=== PATIENT | female | born 1990 | race African-American/Black ===

== ENCOUNTER 2019-10-19 09:48 | Emergency (ER) | payer SELFPAY ==
[2019-10-19 12:09] LABS: Urine Blood NEGATIVE (NEG); Urine Glucose NEGATIVE (NEG); Urine Protein NEGATIVE (NEG); Urine Specific Gravity 1.025 (1.005-1.030)
[2019-10-19] MEDS ORDERED: NA CHLORIDE 0.9% 1,000 ML ONE (12:18)
[2019-10-19 13:12] LABS: Absolute Lymphocytes (CBC) 2.1 K/uL (0.7-4.9); Basophils % 1.9 % (0-1.3); Hematocrit 35.4 % (36.0-45.0); Lymphocytes % 23.8 % (15.3-44.8); MPV 7.7 fL (7.6-11.3); RBC Red Blood Cell Count 4.26 M/uL (3.86-4.86)
[2019-10-19 13:27] LABS: ALT/SGPT 31 U/L (12-78); AST/SGOT 27 U/L (15-37); Albumin 3.3 g/dL (3.4-5.0); Alkaline Phosphatase 72 U/L (45-117); BUN Blood Urea Nitrogen 8 mg/dL (7-18); Bicarbonate 25 mmol/L (21-32); Bilirubin Direct < 0.1 mg/dL (0-0.2); Bilirubin Total 0.2 mg/dL (0.2-1.0); Glucose Level 82 mg/dL (74-106); Lipase 78 U/L (73-393); Potassium 4.3 mmol/L (3.5-5.1); Protein, Total 8.3 g/dL (6.4-8.2); Sodium Level 137 mmol/L (136-145)
[2019-10-19] MEDS ORDERED: ONDANSETRON 4 MG/2 ML VIAL ONE (13:44)
--- NOTE | 2019-10-19 13:51 | ER ---
Nurse's Notes [facility] Name: Josr Tan Age: 28 yrs Sex: Female : 1990 Arrival Date: 10/19/2019 Time: 09:51 Bed 24 Private MD: Diagnosis: Nausea and vomiting Presentation: 10/18 10:56 Chief complaint: Patient states: Vomiting and dizziness x 1.5 week. Today, has been the ca1 worse day. Reports occasional sharp abdominal pain. Denies diarrhea. Coronavirus screen: The patient has NOT traveled to a country currently being monitored by the [facility] within the last 14 days. The patient has NOT had contact with any known and/or suspected case of coronavirus. Ebola Screen: Patient negative for fever greater than or equal to 101.5 degrees Fahrenheit, and additional compatible Ebola Virus Disease symptoms Patient denies exposure to infectious person. Patient denies travel to an Ebola-affected area in the 21 days before illness onset. No symptoms or risks identified at this time. Initial Sepsis Screen: Does the patient meet any 2 criteria? No. Patient's initial sepsis screen is negative. Does the patient have a suspected source of infection? No. Patient's initial sepsis screen is negative. Risk Assessment: Do you want to hurt yourself or someone else? Patient reports no desire to harm self or others. Onset of symptoms. 10:56 Method Of Arrival: Ambulatory ca1 10:56 Acuity: TRAVIS 3 ca1 Triage Assessment: 11:45 General: Appears in no apparent distress. comfortable, Behavior is calm, cooperative, vc appropriate for age. Pain: Denies pain. GI: Reports nausea, vomiting. 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 - Social history:: Smoking status: Patient reports the use of cigarette tobacco products, smokes one-half pack cigarettes per day. Screenin:45 Abuse screen: Denies threats or abuse. Nutritional screening: No deficits noted. vc Tuberculosis screening: No symptoms or risk factors identified. Fall Risk None identified. Assessment: 11:45 GI: Abdomen is round. vc 12:00 General: Appears in no apparent distress. comfortable, Behavior is calm, cooperative, vc appropriate for age. Pain: Denies pain. Neuro: Level of Consciousness is awake, alert, obeys commands, Oriented to person, place, time, situation, Appropriate for age. Cardiovascular: Capillary refill < 3 seconds Patient's skin is warm and dry. Respiratory: Airway is patent Respiratory effort is even, unlabored, Respiratory pattern is regular, symmetrical. : No signs and/or symptoms were reported regarding the genitourinary system. 13:00 Reassessment: Patient and/or family updated on plan of care and expected duration. Pain vc level reassessed. Patient is alert, oriented x 3, equal unlabored respirations, skin warm/dry/pink. 14:00 Reassessment: Patient and/or family updated on plan of care and expected duration. Pain vc level reassessed. Patient is alert, oriented x 3, equal unlabored respirations, skin warm/dry/pink. Patient denies pain at this time. Patient states symptoms have improved. Vital Signs: 10:56 BP 133 / 68; Pulse 85; Resp 15 S; Temp 97.8(TE); Pulse Ox 100% on R/A; Weight 95.25 kg ca1 (R); Height 5 ft. 7 in. (170.18 cm) (R); Pain 6/10; 11:46 BP 128 / 84 Supine; Pulse 78; vc 11:48 BP 133 / 85 Sitting; Pulse 78; vc 11:50 BP 129 / 92; Pulse 91; vc 12:40 BP 132 / 89; Pulse 65; Resp 16; Pulse Ox 99% on R/A; vc 14:06 BP 129 / 97; Pulse 67; Resp 16; Pulse Ox 100% ; vc 10:56 Body Mass Index 32.89 (95.25 kg, 170.18 cm) ca1 ED Course: 09:51 Patient arrived in ED. rg4 10:57 Triage completed. ca1 10:58 Arm band placed on right wrist. ca1 11:00 [facility]. kb 11:00 Willy Samanigeo MD is Attending Physician. kb 11:44 Renu Connor RN is Primary Nurse. vc 11:45 Patient has correct armband on for positive identification. Bed in low position. Call vc light in reach. Pulse ox on. NIBP on. 12:25 Inserted saline lock: 22 gauge in left antecubital area, using aseptic technique. vc 14:06 No provider procedures requiring assistance completed. vc 14:16 IV discontinued, intact, bleeding controlled, No redness/swelling at site. Pressure vc dressing applied. Administered Medications: 12:28 Drug: NS 0.9% 1000 ml Route: IV; Rate: 1000 ml; Site: right antecubital; vc 14:17 Follow up: IV Status: Completed infusion; IV Intake: 600ml vc 13:50 Drug: Zofran (Ondansetron) 4 mg Route: IVP; Site: right antecubital; vc 14:16 Follow up: Response: No adverse reaction; Nausea is decreased vc Intake: 14:17 IV: 600ml; Total: 600ml. vc Outcome: 13:49 Discharge ordered by . kb 14:15 Discharged to home ambulatory, with significant other. vc 14:15 Condition: improved 14:15 Discharge instructions given to patient, Instructed on discharge instructions, follow up and referral plans. medication usage, Demonstrated understanding of instructions, follow-up care, medications, Prescriptions given X 2. 14:17 Patient left the ED. vc Signatures: Emilie Correa FNP-C FNP-Kaia Davalos rg4 Tess Gutierrez RN RN ca1 Renu Connor RN RN vc
--- NOTE | 2019-10-19 13:51 | EDPHYS ---
Physician Documentation [facility] Name: Josr Tan Age: 28 yrs Sex: Female : 1990 Arrival Date: 10/19/2019 Time: 09:51 Bed 24 Private MD: ED Physician Willy Samaniego HPI: 10/18 15:51 This 28 yrs old Black Female presents to ER via Ambulatory with complaints of Vomiting, kb Dizziness. 15:51 The patient presents to the emergency department with nausea, vomiting. The patient has kb not experienced similar symptoms in the past. The patient has not recently seen a physician. 15:51 Onset: The symptoms/episode began/occurred 1 week(s) ago. Possible causes: unknown. The kb symptoms are aggravated by nothing. The symptoms are alleviated by nothing. Associated signs and symptoms: Pertinent positives: nausea, vomiting, Pertinent negatives: abdominal pain, constipation, diarrhea, fever, GI bleeding. Severity of symptoms: At their worst the symptoms were moderate in the emergency department the symptoms are unchanged. 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 - Social history:: Smoking status: Patient reports the use of cigarette tobacco products, smokes one-half pack cigarettes per day. ROS: 15:50 Constitutional: Negative for fever, chills, and weight loss, ENT: Negative for injury, kb pain, and discharge, Neck: Negative for injury, pain, and swelling, Cardiovascular: Negative for chest pain, palpitations, and edema, Respiratory: Negative for shortness of breath, cough, wheezing, and pleuritic chest pain, Back: Negative for injury and pain, : Negative for injury, bleeding, discharge, and swelling, MS/Extremity: Negative for injury and deformity, Skin: Negative for injury, rash, and discoloration, Neuro: Negative for headache, weakness, numbness, tingling, and seizure. 15:50 Abdomen/GI: Positive for nausea and vomiting, Negative for abdominal pain, diarrhea, constipation, abdominal cramps. Exam: 15:50 Constitutional: This is a well developed, well nourished patient who is awake, alert, kb and in no acute distress. Head/Face: Normocephalic, atraumatic. ENT: Nares patent. No nasal discharge, no septal abnormalities noted. Tympanic membranes are normal and external auditory canals are clear. Oropharynx with no redness, swelling, or masses, exudates, or evidence of obstruction, uvula midline. Mucous membranes moist. Neck: Trachea midline, no thyromegaly or masses palpated, and no cervical lymphadenopathy. Supple, full range of motion without nuchal rigidity, or vertebral point tenderness. No Meningismus. Chest/axilla: Normal chest wall appearance and motion. Nontender with no deformity. No lesions are appreciated. Cardiovascular: Regular rate and rhythm with a normal S1 and S2. No gallops, murmurs, or rubs. Normal PMI, no JVD. No pulse deficits. Respiratory: Lungs have equal breath sounds bilaterally, clear to auscultation and percussion. No rales, rhonchi or wheezes noted. No increased work of breathing, no retractions or nasal flaring. Abdomen/GI: Soft, non-tender, with normal bowel sounds. No distension or tympany. No guarding or rebound. No evidence of tenderness throughout. Back: No spinal tenderness. No costovertebral tenderness. Full range of motion. Skin: Warm, dry with normal turgor. Normal color with no rashes, no lesions, and no evidence of cellulitis. MS/ Extremity: Pulses equal, no cyanosis. Neurovascular intact. Full, normal range of motion. Neuro: Awake and alert, GCS 15, oriented to person, place, time, and situation. Cranial nerves II-XII grossly intact. Motor strength 5/5 in all extremities. Sensory grossly intact. Cerebellar exam normal. Normal gait. Vital Signs: 10:56 BP 133 / 68; Pulse 85; Resp 15 S; Temp 97.8(TE); Pulse Ox 100% on R/A; Weight 95.25 kg ca1 (R); Height 5 ft. 7 in. (170.18 cm) (R); Pain 6/10; 11:46 BP 128 / 84 Supine; Pulse 78; vc 11:48 BP 133 / 85 Sitting; Pulse 78; vc 11:50 BP 129 / 92; Pulse 91; vc 12:40 BP 132 / 89; Pulse 65; Resp 16; Pulse Ox 99% on R/A; vc 14:06 BP 129 / 97; Pulse 67; Resp 16; Pulse Ox 100% ; vc 10:56 Body Mass Index 32.89 (95.25 kg, 170.18 cm) ca1 MDM: 11:47 Patient medically screened. kb 15:49 Data reviewed: vital signs, nurses notes. Data interpreted: Pulse oximetry: on room air kb is 100 %. Interpretation: normal. Counseling: I had a detailed discussion with the patient and/or guardian regarding: the historical points, exam findings, and any diagnostic results supporting the discharge/admit diagnosis, lab results, the need for outpatient follow up, a family practitioner, to return to the emergency department if symptoms worsen or persist or if there are any questions or concerns that arise at home. 10/18 12:07 Order name: Urine Dipstick--Ancillary (enter results); Complete Time: 12:10 bd 10/18 12:10 Order name: Basic Metabolic Panel; Complete Time: 13:29 kb 10/18 12:10 Order name: CBC with Diff; Complete Time: 13:14 kb 10/18 12:10 Order name: Hepatic Function; Complete Time: 13:29 kb 10/18 12:10 Order name: Lipase; Complete Time: 13:29 kb 10/18 11:00 Order name: Orthostatics; Complete Time: 12:01 kb 10/18 11:00 Order name: Urine Dipstick-Ancillary (obtain specimen); Complete Time: 12:01 kb 10/18 12:10 Order name: IV Saline Lock; Complete Time: 12:28 kb 10/18 12:10 Order name: Labs collected and sent; Complete Time: 13:09 kb 10/18 13:37 Order name: PO challenge; Complete Time: 14:03 kb Administered Medications: 12:28 Drug: NS 0.9% 1000 ml Route: IV; Rate: 1000 ml; Site: right antecubital; vc 14:17 Follow up: IV Status: Completed infusion; IV Intake: 600ml vc 13:50 Drug: Zofran (Ondansetron) 4 mg Route: IVP; Site: right antecubital; vc 14:16 Follow up: Response: No adverse reaction; Nausea is decreased vc Disposition: 15:59 Co-signature as Attending Physician, Willy Samaniego MD. rn Disposition: 10/19/19 13:49 Discharged to Home. Impression: Nausea and vomiting. - Condition is Stable. - Discharge Instructions: Nausea and Vomiting, Adult, [id number]. - Prescriptions for Bentyl 20 mg Oral Tablet - take 1 tablet by ORAL route every 6 hours As needed; 20 tablet. Zofran 4 mg Oral Tablet - take 1 tablet by ORAL route every 6 hours As needed; 20 tablet. - Medication Reconciliation Form, Thank You Letter, Antibiotic Education, Prescription Opioid Use form. - Follow up: Emergency Department; When: As needed; Reason: Worsening of condition. Follow up: Private Physician; When: 2 - 3 days; Reason: Recheck today's complaints, Continuance of care, Re-evaluation by your physician. Signatures: Dispatcher [employer] EDMS Emilie Correa, RESORT HOST-C RESORT HOST-Ckb Willy Samaniego MD MD rn Matt, Tess RN RAMIREZ ca1 Renu Connor RN RN vc Corrections: (The following items were deleted from the chart) 14:17 13:49 10/19/2019 13:49 Discharged to Home. Impression: Nausea and vomiting. Condition vc is Stable. Forms are Medication Reconciliation Form, Thank You Letter, Antibiotic Education, Prescription Opioid Use. Follow up: Emergency Department; When: As needed; Reason: Worsening of condition. Follow up: Private Physician; When: 2 - 3 days; Reason: Recheck today's complaints, Continuance of care, Re-evaluation by your physician. kb
[2019-10-19 14:34] VITALS: TEMP 97.8
[2019-10-19 14:41] VITALS: BP 129/97; O2SAT 100
== END 2019-10-19 14:17 | disposition home or self-care (01) ==
LOC: ER 09:48
DX: R11.2 Nausea with vomiting, unspecified (principal); F17.210 Nicotine dependence, cigarettes, uncomplicated
CPT/HCPCS: 36415; 80048; 80076; 81003; 83690; 85025; 96361; 96374; 99284; J2405; J7030

== ENCOUNTER 2020-05-01 06:03 | Emergency (ER) | payer SELFPAY ==
--- NOTE | 2020-05-01 06:55 | RAD REPORT ---
EXAM DESCRIPTION: CT - Head Brain Wo Cont - 05/01/2020 6:50 am CLINICAL HISTORY: SYNCOPE, head trauma, loss of consciousness COMPARISON: No comparisons TECHNIQUE: Axial 5 mm thick images of the head were obtained without IV contrast. All CT scans are performed using dose optimization technique as appropriate and may include automated exposure control or mA/KV adjustment according to patient size. FINDINGS: No intracranial hemorrhage, mass, edema or shift of mid-line structures. No acute infarcti on changes seen. No abnormal extra-axial fluid collections. Ventricles are normal. Mastoid air cells and visualized portions of the paranasal sinuses are clear. No acute bony findings. IMPRESSION: Negative non-contrast CT head examination.
[2020-05-01 07:21] LABS: Absolute Lymphocytes (CBC) 2.2 K/uL (0.7-4.9); Basophils % 1.2 % (0-1.3); Hematocrit 35.8 % (36.0-45.0); Lymphocytes % 28.1 % (15.3-44.8); RBC Red Blood Cell Count 4.32 M/uL (3.86-4.86)
[2020-05-01 07:27] LABS: Protime INR 0.92
[2020-05-01] MEDS ORDERED: MORPHINE 4 MG/ML SYR ONE (07:55)
[2020-05-01] MEDS ORDERED: AMLODIPINE 5 MG TAB ONE (07:56)
[2020-05-01] MEDS ORDERED: ONDANSETRON 4 MG/2 ML VIAL ONE (07:56)
[2020-05-01] MEDS ORDERED: NA CHLORIDE 0.9% 1,000 ML ONE (07:56)
[2020-05-01 08:41] LABS: Urine Blood NEGATIVE (NEG); Urine Glucose NEGATIVE (NEG); Urine Protein NEGATIVE (NEG); Urine Specific Gravity >1.030 (1.005-1.030)
[2020-05-01 09:03] LABS: ALT/SGPT 22 U/L (12-78); Albumin 3.3 g/dL (3.4-5.0); Alkaline Phosphatase 79 U/L (45-117); BUN Blood Urea Nitrogen 8 mg/dL (7-18); Bicarbonate 27 mmol/L (21-32); Bilirubin Direct < 0.1 mg/dL (0-0.2); Bilirubin Total 0.1 mg/dL (0.2-1.0); CKMB Creatine Kinase MB 1.3 ng/mL (0.3-3.6); Creatine Phosphokinase 207 U/L (26-192); Glucose Level 96 mg/dL (74-106); Lipase 73 U/L (73-393); Protein, Total 8.1 g/dL (6.4-8.2); Sodium Level 142 mmol/L (136-145); Troponin (Emerg Dept Use Only) < 0.02 ng/mL (0.0-0.045)
[2020-05-01 09:07] LABS: AST/SGOT 23 U/L (15-37); Magnesium 2.1 mg/dL (1.8-2.4); Potassium 3.9 mmol/L (3.5-5.1)
--- NOTE | 2020-05-01 09:21 | ER ---
Nurse's Notes [facility] Name: Josr Tan Age: 29 yrs Sex: Female : 1990 Arrival Date: 05/01/2020 Time: 06:04 Bed 14 Private MD: Diagnosis: Essential (primary) hypertension;Syncope and collapse Presentation: 05/01 06:20 Chief complaint: Spouse and/or significant other states: states patient passed lp1 out this morning, hitting head on table then to floor, + LOC; Patient cannot recall events, states feeling short of breath last night and vomited x2. Coronavirus screen: Client denies travel out of the [place] in the last 14 days. At this time, the client does not indicate any symptoms associated with coronavirus-19. Ebola Screen: No symptoms or risks identified at this time. Initial Sepsis Screen: Does the patient meet any 2 criteria? No. Patient's initial sepsis screen is negative. Does the patient have a suspected source of infection? No. Patient's initial sepsis screen is negative. Risk Assessment: Do you want to hurt yourself or someone else? Patient reports no desire to harm self or others. Onset of symptoms was May 01, 2020 at 05:30. 06:20 Method Of Arrival: Wheelchair lp1 06:20 Acuity: TRAVIS 2 lp1 06:25 Care prior to arrival: None. Mechanism of Injury: Fall from standing position. Trauma lp1 event details: Injury occurred in the [facility], Injury occurred: at home. Injury occurred: May 01, 2020 Injury occurred at: 05:30. 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 Cramer; Notified At: 06:19; Arrived At: 06:20 Physician: General Surgeon; Name: N/A; Notified At: 06:19; Arrived At: Physician: Radiology; Name: Link Wall; Notified At: 06:19; Arrived At: 06:23 Physician: Respiratory; Name: N/A; Notified At: 06:19; Arrived At: Physician: Lab; Name: N/A; Notified At: 06:19; Arrived At: Historical: - Allergies: 06:24 No Known Allergies; lp1 - Home Meds: 06:24 Norvasc Oral [Active]; Fiorinal oral oral [Active]; lp1 - PMHx: 06:24 Hypertension; Migraines; lp1 - PSHx: 06:24 ; lp1 - Immunization history:: Adult Immunizations up to date. - Social history:: Smoking status: Patient reports the use of cigarette tobacco products, smokes one-half pack cigarettes per day. - Immunization history: Last tetanus immunization: unknown. Screenin:27 Abuse screen: Denies threats or abuse. Denies injuries from another. Nutritional lp1 screening: No deficits noted. Tuberculosis screening: No symptoms or risk factors identified. 06:54 Fall Risk Fall in past 12 months (25 points). Primary Survey: 06:26 NO uncontrolled hemorrhage observed. Breathing/Chest: Respiratory pattern: regular, lp1 Respiratory effort: spontaneous, unlabored, Chest inspection: symmetrical rise and fall of the chest. Circulation: Skin color: pink, Skin temperature: warm, dry. Disability Alert. Exposure/Environment: Obvious injury(ies) are noted at this time: Reports pain to back of head, skin intact. 06:54 Reassessment Breathing/Chest Respiratory pattern Regular Respiratory effort Spontaneous wh Unlabored Breath sounds Clear. Assessment: 06:25 General: Appears in no apparent distress. Behavior is appropriate for age. Pain: lp1 Complains of pain in occipital area Pain currently is 8 out of 10 on a pain scale. Quality of pain is described as aching. Neuro: Level of Consciousness is awake, alert, obeys commands, Oriented to person, place, situation, Moves all extremities. Full function Speech is normal, Pupils are PERRLA. EENT: No signs and/or symptoms were reported regarding the EENT system. Cardiovascular: Patient's skin is warm and dry. Respiratory: Airway is patent Respiratory effort is even, unlabored. GI: Abdomen is non-distended. : No signs and/or symptoms were reported regarding the genitourinary system. Derm: Skin is intact, Skin is dry, Skin is normal. Musculoskeletal: No deficits noted. 06:53 Reassessment: PT back from CT Scan. 07:00 Reassessment: RECD REPORT FROM [facility]ZM[facility]N. 29YO BF P/W SYNCOPE AND SOB. UOP PENDING, PT bp RETURNED FROM CT. 08:07 Reassessment: ALL CURRENT ORDERS COMPLETED, RESULTS PENDING. bp 08:22 Reassessment: PHLEBOTOMY AT B/S FOR 2ND REDRAW. bp 09:14 Reassessment: ALL CURRENT ORDERS COMPLETED, HTN IMPROVED. bp 09:53 Reassessment: PT D/C HOME VIA W/C WITH FAMILY, DX WITH HTN. bp Vital Signs: 06:20 BP 152 / 106; Pulse 75; Resp 18; Temp 98.3(TE); Pulse Ox 100% on R/A; Weight 97.52 kg lp1 (R); Height 5 ft. 7 in. (170.18 cm); Pain 8/10; 06:54 BP 155 / 99 Supine; Pulse 72; wh 06:54 BP 162 / 99 Sitting; Pulse 74; wh 06:54 BP 155 / 107 Standing; Pulse 75; wh 07:15 BP 199 / 117; Pulse 70; Resp 16; Pulse Ox 98% ; bp 08:00 BP 144 / 102; Pulse 66; Resp 20; Pulse Ox 98% ; bp 09:00 BP 155 / 100; Pulse 62; Resp 16; Pulse Ox 98% ; bp 09:53 BP 143 / 94; Pulse 67; Resp 23; Temp 98; Pulse Ox 98% ; bp 06:20 Body Mass Index 33.67 (97.52 kg, 170.18 cm) lp1 [place] Coma Score: 06:27 Eye Response: spontaneous(4). Verbal Response: oriented(5). Motor Response: obeys lp1 commands(6). Total: 15. Trauma Score (Adult): 06:27 Eye Response: spontaneous(1); Verbal Response: oriented(1); Motor Response: obeys lp1 commands(2); Systolic BP: > 89 mm Hg(4); Respiratory Rate: 10 to 29 per min(4); [place] Score: 15; Trauma Score: 12 ED Course: 06:04 Patient arrived in ED. cl3 06:13 Fallon De Souza is Primary Nurse. wh 06:20 [facility] Corrae [facility]-C [facility]. kb 06:20 Wang Cramer MD is Attending Physician. kb 06:24 Triage completed. lp1 06:24 Arm band placed on. lp1 06:27 Patient maintains SpO2 saturation greater than 95% on room air. lp1 06:28 Thermoregulation: warm blanket given to patient. lp1 06:30 Patient has correct armband on for positive identification. Placed in gown. Bed in low wh position. Call light in reach. Side rails up X 1. 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 Pulse ox on. NIBP on. 06:58 Primary Nurse role handed off by Fallon De Souza bp 06:58 Luis Manuel Ramirez, RN is Primary Nurse. bp 07:15 Inserted saline lock: 20 gauge in right forearm, using aseptic technique. Blood bp collected. 09:54 No provider procedures requiring assistance completed. IV discontinued, intact, bp bleeding controlled, No redness/swelling at site. Pressure dressing applied. Administered Medications: 07:45 Drug: NS 0.9% 1000 ml Route: IV; Rate: 1000 ml; Site: right forearm; bp 09:55 Follow up: IV Status: Completed infusion bp 07:45 Drug: Zofran (Ondansetron) 4 mg Route: IVP; Site: right forearm; bp 08:22 Follow up: Response: Nausea is decreased bp 07:45 Drug: morphine 4 mg Route: IVP; Site: right forearm; bp 08:22 Follow up: Response: Pain is decreased bp 07:45 Drug: Norvasc 5 mg Route: PO; bp 08:22 Follow up: Response: No adverse reaction bp Outcome: 09:21 Discharge ordered by . kb 09:54 Discharged to home via wheelchair, with family. bp 09:54 Condition: stable 09:54 Discharge instructions given to patient, family, Instructed on discharge instructions, follow up and referral plans. Demonstrated understanding of instructions, follow-up care. 09:56 Patient left the ED. bp Signatures: Emilie Correa, GLOVE CUTTER-C GLOVE CUTTER-Isabel Kendall RN RN lp Fallon De Souza Luis Manuel Ramirez, Maximiliano Kramer RN cl3
--- NOTE | 2020-05-01 09:22 | EDPHYS ---
Physician Documentation [facility] Name: Josr Tan Age: 29 yrs Sex: Female : 1990 Arrival Date: 05/01/2020 Time: 06:04 Bed 14 Private MD: ED Physician Wang Cramer HPI: 05/01 07:11 This 29 yrs old Black Female presents to ER via Wheelchair with complaints of Passed kb Out Prior To Arrival, Shortness Of Breath. 07:11 The patient has experienced syncope, collapsed. Onset: The symptoms/episode kb began/occurred just prior to arrival. Duration: This was a single episode, that lasted 2 minute(s). Context: the episode(s) was witnessed, by a significant other, , occurred at home, occurred while the patient was standing, Just prior to the episode the patient experienced headache, vomiting. Associated injury: The patient did not suffer any apparent associated injury. Associated signs and symptoms: Pertinent positives: headache. Current symptoms: headache, that is mild. The patient has not experienced similar symptoms in the past. The patient has not recently seen a physician. 07:13 Pt reports she hasn't been feeling well since she got off of work yesterday. Reports kb malaise, headache, nausea and vomiting. Got up to help her get ready for work and had a syncopal episode while standing. reports she hit the back of her head when she fell.. 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 - Social history:: Smoking status: Patient reports the use of cigarette tobacco products, smokes one-half pack cigarettes per day. - Immunization history: Last tetanus immunization: unknown. ROS: 07:10 Cardiovascular: Negative for chest pain, palpitations, and edema, Respiratory: Negative kb for shortness of breath, cough, wheezing, and pleuritic chest pain, Back: Negative for injury and pain, MS/Extremity: Negative for injury and deformity, Skin: Negative for injury, rash, and discoloration. 07:10 Constitutional: Positive for malaise. 07:10 Abdomen/GI: Positive for nausea and vomiting, Negative for abdominal pain. 07:10 Neuro: Positive for headache, syncope. Exam: 07:10 Constitutional: This is a well developed, well nourished patient who is awake, alert, kb and in no acute distress. Head/Face: Normocephalic, atraumatic. Eyes: Pupils equal round and reactive to light, extra-ocular motions intact. Lids and lashes normal. Conjunctiva and sclera are non-icteric and not injected. Cornea within normal limits. Periorbital areas with no swelling, redness, or edema. Chest/axilla: Normal chest wall appearance and motion. Nontender with no deformity. No lesions are appreciated. Cardiovascular: Regular rate and rhythm with a normal S1 and S2. No gallops, murmurs, or rubs. Normal PMI, no JVD. No pulse deficits. Respiratory: Lungs have equal breath sounds bilaterally, clear to auscultation and percussion. No rales, rhonchi or wheezes noted. No increased work of breathing, no retractions or nasal flaring. Abdomen/GI: Soft, non-tender, with normal bowel sounds. No distension or tympany. No guarding or rebound. No evidence of tenderness throughout. Skin: Warm, dry with normal turgor. Normal color with no rashes, no lesions, and no evidence of cellulitis. MS/ Extremity: Pulses equal, no cyanosis. Neurovascular intact. Full, normal range of motion. Neuro: Awake and alert, GCS 15, oriented to person, place, time, and situation. Cranial nerves II-XII grossly intact. Motor strength 5/5 in all extremities. Sensory grossly intact. Cerebellar exam normal. Normal gait. 07:14 ECG was reviewed by the Attending Physician. Vital Signs: 06:20 BP 152 / 106; Pulse 75; Resp 18; Temp 98.3(TE); Pulse Ox 100% on R/A; Weight 97.52 kg lp1 (R); Height 5 ft. 7 in. (170.18 cm); Pain 8/10; 06:54 BP 155 / 99 Supine; Pulse 72; wh 06:54 BP 162 / 99 Sitting; Pulse 74; wh 06:54 BP 155 / 107 Standing; Pulse 75; wh 07:15 BP 199 / 117; Pulse 70; Resp 16; Pulse Ox 98% ; bp 08:00 BP 144 / 102; Pulse 66; Resp 20; Pulse Ox 98% ; bp 09:00 BP 155 / 100; Pulse 62; Resp 16; Pulse Ox 98% ; bp 09:53 BP 143 / 94; Pulse 67; Resp 23; Temp 98; Pulse Ox 98% ; bp 06:20 Body Mass Index 33.67 (97.52 kg, 170.18 cm) lp1 [place] Coma Score: 06:27 Eye Response: spontaneous(4). Verbal Response: oriented(5). Motor Response: obeys lp1 commands(6). Total: 15. Trauma Score (Adult): 06:27 Eye Response: spontaneous(1); Verbal Response: oriented(1); Motor Response: obeys lp1 commands(2); Systolic BP: > 89 mm Hg(4); Respiratory Rate: 10 to 29 per min(4); Ciera Score: 15; Trauma Score: 12 MDM: 06:20 Patient medically screened. kb 07:10 Data reviewed: vital signs, nurses notes. Data interpreted: Pulse oximetry: on room air kb is 100 %. Interpretation: normal. 09:20 Counseling: I had a detailed discussion with the patient and/or guardian regarding: the kb historical points, exam findings, and any diagnostic results supporting the discharge/admit diagnosis, lab results, radiology results, the need for outpatient follow up, a family practitioner, to return to the emergency department if symptoms worsen or persist or if there are any questions or concerns that arise at home. ED course: Pt feeling better, just tired now. Headache resolved after treatment. BP lowered. Pt educated on need to follow up with PCP for continuation of HTN management. Verbal understanding received. . 05/01 06:25 Order name: Basic Metabolic Panel 05/01 06:25 Order name: CBC with Diff 05/01 06:25 Order name: Ckmb 05/01 06:25 Order name: CPK 05/01 06:25 Order name: Hepatic Function 05/01 06:25 Order name: Lipase 05/01 06:25 Order name: Magnesium 05/01 06:25 Order name: Protime (+inr) 05/01 06:25 Order name: Ptt, Activated 05/01 06:25 Order name: Troponin (emerg Dept Use Only) kb 05/01 07:22 Order name: CBC with Automated Diff; Complete Time: 07:35 EDMS 05/01 07:28 Order name: Protime (+INR); Complete Time: 07:35 EDMS 05/01 07:28 Order name: PTT, Activated Partial Thromb; Complete Time: 07:35 EDMS 05/01 08:17 Order name: Urine Dipstick--Ancillary (enter results) bd 05/01 06:25 Order name: CT Head Brain wo Cont kb 05/01 06:56 Order name: CT; Complete Time: 07:00 EDMS 05/01 08:17 Order name: Urine --Ancillary (enter results) bd 05/01 08:42 Order name: Urine --Ancillary; Complete Time: 08:42 EDMS 05/01 08:42 Order name: Urine Dipstick-Ancillary; Complete Time: 08:42 EDMS 05/01 09:08 Order name: Basic Metabolic Panel; Complete Time: 09:09 EDMS 05/01 09:08 Order name: Liver (Hepatic) Function; Complete Time: 09:09 EDMS 05/01 09:08 Order name: Creatine Phosphokinase; Complete Time: 09:09 EDMS 05/01 09:08 Order name: CKMB Creatine Kinase MB; Complete Time: 09:09 EDMS 05/01 09:08 Order name: Troponin (Emerg Dept Use Only); Complete Time: 09:09 EDMS 05/01 09:08 Order name: Magnesium; Complete Time: 09:09 EDMS 05/01 09:08 Order name: Lipase; Complete Time: 09:09 EDMS 05/01 06:21 Order name: Orthostatics; Complete Time: 06:56 kb 05/01 06:25 Order name: EKG; Complete Time: 06:26 kb 05/01 06:25 Order name: Cardiac monitoring; Complete Time: 06:44 kb 05/01 06:25 Order name: EKG - Nurse/Tech; Complete Time: 07:15 kb 05/01 06:25 Order name: IV Saline Lock; Complete Time: 07:16 kb 05/01 06:25 Order name: Labs collected and sent; Complete Time: 07:16 kb 05/01 06:25 Order name: NPO; Complete Time: 06:44 kb 05/01 06:25 Order name: O2 Per Protocol; Complete Time: 06:44 kb 05/01 06:25 Order name: O2 Sat Monitoring; Complete Time: 06:44 kb 05/01 06:25 Order name: Urine Dipstick-Ancillary (obtain specimen); Complete Time: 08:23 kb 05/01 07:28 Order name: Labs - recollect needed: recollect c7; Complete Time: 08:05 bd 05/01 08:14 Order name: Labs - recollect needed: recollect c7. ; Complete Time: 08:22 bd EC:14 Rate is 65 beats/min. Rhythm is regular. QRS [place] is Normal. LA interval is normal at kb 166 msec. QRS interval is normal at 88 msec. QT interval is normal at 412 msec. Administered Medications: 07:45 Drug: NS 0.9% 1000 ml Route: IV; Rate: 1000 ml; Site: right forearm; bp 09:55 Follow up: IV Status: Completed infusion bp 07:45 Drug: Zofran (Ondansetron) 4 mg Route: IVP; Site: right forearm; bp 08:22 Follow up: Response: Nausea is decreased bp 07:45 Drug: morphine 4 mg Route: IVP; Site: right forearm; bp 08:22 Follow up: Response: Pain is decreased bp 07:45 Drug: Norvasc 5 mg Route: PO; bp 08:22 Follow up: Response: No adverse reaction bp Disposition: 19:03 Co-signature as Attending Physician, Wang Cramer MD. tati Disposition: 05/01/20 09:21 Discharged to Home. Impression: Essential (primary) hypertension, Syncope and collapse. - Condition is Stable. - Discharge Instructions: Hypertension, [id number], Syncope, [id number]-[id number]-[id number]. - Medication Reconciliation Form, Thank You Letter, Antibiotic Education, Prescription Opioid Use, Work release form, Family Work Release form. - Follow up: Emergency Department; When: As needed; Reason: Worsening of condition. Follow up: Private Physician; When: 2 - 3 days; Reason: Recheck today's complaints, Continuance of care, Re-evaluation by your physician. Signatures: Dispatcher [employer] EDEmilie Marroquin FNP-C FNP-Ckb Dirrim, Barbara bd Lam, Pin, MD MD pkIsabel Escalante RN RN lp1 Fallon De Souza Luis Manuel Healy RN RN bp Corrections: (The following items were deleted from the chart) 07: 07:10 Neuro: Positive for syncope, cristhian morrow 07:13 07:10 Constitutional: This is a well developed, well nourished patient who is awake, kb alert, and in no acute distress. Head/Face: Normocephalic, atraumatic. Eyes: Pupils equal round and reactive to light, extra-ocular motions intact. Lids and lashes normal. Conjunctiva and sclera are non-icteric and not injected. Cornea within normal limits. Periorbital areas with no swelling, redness, or edema. Chest/axilla: Normal chest wall appearance and motion. Nontender with no deformity. No lesions are appreciated. Cardiovascular: Regular rate and rhythm with a normal S1 and S2. No gallops, murmurs, or rubs. Normal PMI, no JVD. No pulse deficits. Respiratory: Lungs have equal breath sounds bilaterally, clear to auscultation and percussion. No rales, rhonchi or wheezes noted. No increased work of breathing, no retractions or nasal flaring. Abdomen/GI: Soft, non-tender, with normal bowel sounds. No distension or tympany. No guarding or rebound. No evidence of tenderness throughout. Skin: Warm, dry with normal turgor. Normal color with no rashes, no lesions, and no evidence of cellulitis. MS/ Extremity: Pulses equal, no cyanosis. Neurovascular intact. Full, normal range of motion. Neuro: Awake and alert, GCS 15, oriented to person, place, time, and situation. Cranial nerves II-XII grossly intact. Motor strength 5/5 in all extremities. Sensory grossly intact. Cerebellar exam normal. Normal gait. kb 09:56 09:21 05/01/2020 09:21 Discharged to Home. Impression: Essential (primary) bp hypertension; Syncope and collapse. Condition is Stable. Forms are Medication Reconciliation Form, Thank You Letter, Antibiotic Education, Prescription Opioid Use. Follow up: Emergency Department; When: As needed; Reason: Worsening of condition. Follow up: Private Physician; When: 2 - 3 days; Reason: Recheck today's complaints, Continuance of care, Re-evaluation by your physician. kb
[2020-05-01 10:27] VITALS: O2SAT 98
[2020-05-01 10:31] VITALS: BP 143/94; TEMP 98
--- NOTE | 2020-05-02 10:47 | EKG ---
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
== END 2020-05-01 09:56 | disposition home or self-care (01) ==
LOC: ER 06:03
DX: I10 Essential (primary) hypertension (principal); F17.210 Nicotine dependence, cigarettes, uncomplicated
CPT/HCPCS: 36415; 70450; 80048; 80076; 81003; 81025; 82550; 82553; 83690; 83735; 84484; 85025; 85610; 85730; 93005; 96361; 96374; 96375; 99285; G0390; J2405; J7030

== ENCOUNTER 2020-07-20 11:52 | Emergency (ER) | payer SELFPAY ==
[2020-07-20] MEDS ORDERED: ACETAMINOPHEN 325 MG TABLET ONE (14:40)
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
[2020-07-20] MEDS ORDERED: PROMETHAZINE INJ 25 MG/ML AMP ONE (16:27)
[2020-07-20] MEDS ORDERED: HYDROCODONE/APAP 10/325 TAB ONE (16:28)
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
[2020-07-21 12:47] VITALS: BP 165/104; TEMP 98.7; O2SAT 100
== END 2020-07-20 17:18 | disposition home or self-care (01) ==
LOC: ER 11:52
DX: S63.591A Other specified sprain of right wrist, initial encounter (principal); R51.9 Headache, unspecified; M54.2 Cervicalgia; Y04.2XXA Assault by strike against or bumped into by another person, initial encounter; Y93.01 Activity, walking, marching and hiking; Y92.89 Other specified places as the place of occurrence of the external cause; I10 Essential (primary) hypertension; F17.210 Nicotine dependence, cigarettes, uncomplicated
CPT/HCPCS: 70450; 72125; 96372; 99284; J2550

== ENCOUNTER 2020-08-16 21:26 | Emergency (ER) | payer SELFPAY ==
[2020-08-16] MEDS ORDERED: NA CHLORIDE 0.9% 1,000 ML ONE (21:58)
[2020-08-16] MEDS ORDERED: FOLIC ACID 5 MG/ML VIAL ONE (22:00)
[2020-08-16 22:13] LABS: Absolute Lymphocytes (CBC) 2.2 K/uL (0.7-4.9); Basophils % 1.1 % (0-1.3); Hematocrit 35.9 % (36.0-45.0); MPV 8.3 fL (7.6-11.3); RBC Red Blood Cell Count 4.35 M/uL (3.86-4.86)
[2020-08-16] MEDS ORDERED: ASPIRIN 81 MG CHEWABLE TABLET ONE (22:30)
[2020-08-16 22:43] LABS: Blood Morphology Comment NOTED (NOT SEEN); Hypochromasia 1+; Platelet Estimate ADEQ; White Blood Cell Scan OK (OK)
[2020-08-16 22:45] LABS: ALT/SGPT 20 U/L (12-78); AST/SGOT 19 U/L (15-37); Albumin 3.6 g/dL (3.4-5.0); Alkaline Phosphatase 78 U/L (45-117); BUN Blood Urea Nitrogen 10 mg/dL (7-18); Bicarbonate 26 mmol/L (21-32); Bilirubin Direct < 0.1 mg/dL (0-0.2); Bilirubin Total 0.2 mg/dL (0.2-1.0); C-Reactive Protein 4.78 mg/L (<3.00); Glucose Level 88 mg/dL (74-106); Magnesium 2.2 mg/dL (1.8-2.4); NT PRO-BNP 74 pg/mL (<125); Potassium 3.7 mmol/L (3.5-5.1); Protein, Total 8.5 g/dL (6.4-8.2); Sodium Level 138 mmol/L (136-145); Troponin (Emerg Dept Use Only) < 0.02 ng/mL (0.0-0.045)
[2020-08-16] MEDS ORDERED: AMLODIPINE 10 MG TAB ONE (23:02)
[2020-08-16 23:23] LABS: Barbiturates NEGATIVE (NEGATIVE); Benzodiazepines NEGATIVE (NEGATIVE); Cocaine NEGATIVE (NEGATIVE); METHAMPHETAM NEGATIVE (NEGATIVE); Methadone NEGATIVE (NEGATIVE); Opiates NEGATIVE (NEGATIVE); Phencyclidine NEGATIVE (NEGATIVE); THC Cannibis NEGATIVE (NEGATIVE)
--- NOTE | 2020-08-16 23:25 | ER ---
Nurse's Notes [facility] Name: Josr Tan Age: 29 yrs Sex: Female : 1990 Arrival Date: 08/16/2020 Time: 21:31 Bed 3 Private MD: None, None Diagnosis: Essential (primary) hypertension;Headache Presentation: 08/16 21:37 Chief complaint: EMS states: 45 mins ago pt complaining of having numbness to the left sg arm and a headache with high blood pressure while at work. pt states that upon arrival to ED th numbness is in the left hand only, reports continued headache and pressure at this time, no other deficits or complaints reported for triage. Coronavirus screen: Client denies travel out of the [place] in the last 14 days. At this time, the client does not indicate any symptoms associated with coronavirus-19. Ebola Screen: Patient negative for fever greater than or equal to 101.5 degrees Fahrenheit, and additional compatible Ebola Virus Disease symptoms Patient denies exposure to infectious person. Patient denies travel to an Ebola-affected area in the 21 days before illness onset. No symptoms or risks identified at this time. Initial Sepsis Screen: Does the patient meet any 2 criteria? No. Patient's initial sepsis screen is negative. Does the patient have a suspected source of infection? No. Patient's initial sepsis screen is negative. Risk Assessment: Do you want to hurt yourself or someone else? Patient reports no desire to harm self or others. Onset of symptoms was August 16, 2020. Care prior to arrival: None. Activity prior to arrival: confused, reports alert and oriented x 3 at this time. Mechanism of Injury: No Mechanism of Injury. Transition of care: patient was not received from another setting of care. 21:37 Method Of Arrival: EMS: [facility] sg 21:37 Acuity: TRAVIS 2 sg 21:40 Note VS [employer] PER EMS 170/90 HR 89 O2 100 RA. sg Triage Assessment: 21:37 General: Appears in no apparent distress. uncomfortable, well groomed, well developed, sg well nourished, Behavior is calm, cooperative, appropriate for age. Pain: Complains of pain in head. Neuro: Reports headache in entire frontal area, numbness in left arm. Cardiovascular: Chest pain is denied. Respiratory: Airway is patent Respiratory effort is even, unlabored, Respiratory pattern is regular, symmetrical. GI: No signs and/or symptoms were reported involving the gastrointestinal system. Derm: Skin is intact, is healthy with good turgor, Skin is dry, Skin is normal, Skin temperature is warm. Historical: - Allergies: 21:40 No Known Allergies; sg - PMHx: 21:40 Hypertension; Migraines; sg - PSHx: 21:40 ; sg - Immunization history:: Adult Immunizations up to date. - Social history:: Smoking status: Patient denies any tobacco usage or history of. Screenin:48 Abuse screen: Denies threats or abuse. Denies injuries from another. Nutritional ea screening: No deficits noted. Tuberculosis screening: No symptoms or risk factors identified. VAN Screening: Arm Drift: Patient shows no arm weakness. Patient is VAN negative. The patient has not been NPO before screening. The patient is alert, able to follow commands. The patient does not exhibit slurred or garbled speech The patient is not exhibiting difficulty speaking. The patient does not exhibit difficulty understanding words. The patient is able to swallow own secretions with no drooling or need for suction. Patient tolerated one teaspoon of water. No drooling, immediate coughing, gurgling, or clearing of the throat was noted. The patient tolerated 90mL of water. No drooling, immediate coughing, gurgling, or clearing of the throat was noted. The patient passed the bedside swallow screening. Oral medications may be given as ordered. Contact Physician for further diet orders. Provider notified of bedside swallow screening results: Murphy Vargas MD. Fall Risk None identified. Assessment: 22:07 General: Appears comfortable, Behavior is calm, cooperative. Pain: Complains of pain in rv head. Neuro: Level of Consciousness is awake, alert, obeys commands, Oriented to person, place, time, situation, Moves all extremities. Full function Reports headache numbness in left arm. Cardiovascular: Patient's skin is warm and dry. Rhythm is regular. Respiratory: Airway is patent Respiratory effort is even, unlabored. Derm: Skin is intact. 23:31 Reassessment: Patient and/or family updated on plan of care and expected duration. Pain ea level reassessed. Patient is alert, oriented x 3, equal unlabored respirations, skin warm/dry/pink. Discharge instruction given to patient, verbalized the understanding of instruction. Pt left ED ambulatory, family awaiting for pt in lobby. Pt tolerating well. Vital Signs: 22:09 BP 210 / ???; Pulse 75; Resp 16; Temp 98.7; Pulse Ox 99% ; Weight 95.25 kg; Height 5 rv ft. 7 in. (170.18 cm); 23:26 BP 172 / 103; Pulse 71; Resp 18; Pulse Ox 98% on R/A; ea 22:09 Body Mass Index 32.89 (95.25 kg, 170.18 cm) rv Ciera Coma Score: 22:40 Eye Response: spontaneous(4). Verbal Response: oriented(5). Motor Response: obeys roselia commands(6). Total: 15. NIH Stroke Scale Scores: 22:06 NIHSS Score: 0 rv ED Course: 21:31 Patient arrived in ED. sg 21:32 Murphy Vargas MD is Attending Physician. roselia 21:37 Arm band placed on. sg 21:40 Triage completed. sg 21:41 None, None is Private Physician. sg 21:43 CT Stroke Brain w/o Contrast In Process Unspecified. EDMS 21:48 Seda Child, RAMIREZ is Primary Nurse. ea 21:49 EKG done, by ED staff, reviewed by Murphy Vargas MD. ea 22:00 Inserted saline lock: 20 gauge in left forearm, using aseptic technique. Blood rv collected. 22:00 Initial lab(s) drawn, by nm, sent to lab. rv 22:02 XRAY Chest (1 view) In Process Unspecified. EDMS 22:09 Patient has correct armband on for positive identification. telemetry monitor on. Pulse rv ox on. NIBP on. 23:23 Kj Mcclure MD is Referral Physician. roselia 23:23 Satya Whaley MD is Referral Physician. roselia 23:25 No provider procedures requiring assistance completed. ea 23:31 IV discontinued, intact, bleeding controlled, No redness/swelling at site. Pressure ea dressing applied. Administered Medications: 22:08 Drug: foLIC Acid 1 mg Route: IVPB; Site: left antecubital; ea 23:29 Follow up: Response: No adverse reaction; IV Status: Completed infusion ea 22:08 Drug: NS 0.9% 1000 ml Route: IV; Rate: 1 bolus; Site: left forearm; ea 23:29 Follow up: Response: No adverse reaction; IV Status: Completed infusion; IV Intake: ea 1000ml 22:16 Drug: Aspirin Chewable Tablet 324 mg Route: PO; ea 22:51 Follow up: Response: No adverse reaction ea 22:49 Drug: Norvasc 10 mg Route: PO; ea 23:25 Follow up: Response: No adverse reaction ea 23:29 Drug: Hydrochlorothiazide 25 mg Route: PO; ea 23:30 Follow up: Response: Medication administered at discharge. ea 23:29 Drug: Tylenol 1000 mg Route: PO; ea 23:30 Follow up: Response: Medication administered at discharge. ea Intake: 23:29 IV: 1000ml; Total: 1000ml. ea Outcome: 23:24 Discharge ordered by . roselia 23:33 Discharged to home ambulatory, with family. ea 23:33 Condition: stable 23:33 Discharge instructions given to patient, Instructed on discharge instructions, follow up and referral plans. medication usage, Demonstrated understanding of instructions, follow-up care, medications, Prescriptions given X 3. 23:34 Patient left the ED. ea NIH Stroke Scale - NIH Stroke Score Date: 08/16/2020 Time: 22:06 Total Score = 0 1a. Level of Consciousness (LOC) - 0(Alert) 1b. Level of Consciousness (LOC) (Year \T\ Age) - 0(Both) 1c. LOC Commands (Open \T\ Closes Eyes/Specimen Collector) - 0(Both) 2. Best Gaze (Lateral Gaze Paresis) - 0(Normal) 3. Visual Field Loss - 0(No visual loss) 4. Facial Palsy - 0(Normal) 5a. Left Arm: Motor (10-second hold) - 0(No drift) 5b. Right Arm: Motor (10-second hold) - 0(No drift) 6a. Left Leg: Motor (5-second hold - always test supine) - 0(No drift) 6b. Right Leg: Motor (5-second hold - always test supine) - 0(No drift) 7. Limb Ataxia (finger/nose \T\ heel/flood - test with eyes open) - 0(Absent) 8. Sensory Loss (pinprick arms/legs/face) - 0(Normal) 9. Best Language: Aphasia (description/naming/reading) - 0(No aphasia) 10. Dysarthria (speech clarity - read or repeat words) - 0(Normal) 11. Extinction and Inattention (visual/tactile/auditory/spatial/personal) - 0(No abnormality) Initials: rv Signatures: Dispatcher [employer] Rahul العراقي RN RN sg Anderson, Corey, MD MD cha Antunez, Elena, RN RN ea Vicente, Ronaldo, RN RN rv Corrections: (The following items were deleted from the chart) 21:43 21:37 Acuity: TRAVIS [address] [facility] 23:26 22:39 BP 100 / 64; Pulse 69bpm; Resp 18bpm; Pulse Ox 99%; ea ea
--- NOTE | 2020-08-16 23:25 | EDPHYS ---
Physician Documentation [facility] Name: Josr Tan Age: 29 yrs Sex: Female : 1990 Arrival Date: 08/16/2020 Time: 21:31 Bed 3 Private MD: None, None ED Physician Murphy Vargas HPI: 08/16 22:33 This 29 yrs old Black Female presents to ER via EMS with complaints of Headache, roselia Numbness, S/S of Possible Stroke. 22:33 The patient complains of pain to the top of head and forehead. The patient describes roselia the headache as aching. Onset: The symptoms/episode began/occurred just prior to arrival. Associated signs and symptoms: Pertinent positives: left arm tingling. Severity of symptoms: At its worst the pain was mild, in the emergency department the pain is unchanged. Headache History: The patient has had previous headaches and this one is similar to previous episodes. The symptoms are alleviated by nothing. the symptoms are aggravated by nothing. The patient has not experienced similar symptoms in the past. Historical: - Allergies: 21:40 No Known Allergies; sg - PMHx: 21:40 Hypertension; Migraines; sg - PSHx: 21:40 ; sg - Immunization history:: Adult Immunizations up to date. - Social history:: Smoking status: Patient denies any tobacco usage or history of. ROS: 22:35 Constitutional: Negative for fever, chills, and weight loss, Eyes: Negative for injury, roselia pain, redness, and discharge, ENT: Negative for injury, pain, and discharge, Neck: Negative for injury, pain, and swelling, Cardiovascular: Negative for chest pain, palpitations, and edema, Respiratory: Negative for shortness of breath, cough, wheezing, and pleuritic chest pain, Abdomen/GI: Negative for abdominal pain, nausea, vomiting, diarrhea, and constipation, Back: Negative for injury and pain, : Negative for injury, bleeding, discharge, and swelling, MS/Extremity: Negative for injury and deformity, Skin: Negative for injury, rash, and discoloration, Neuro: Negative for headache, weakness, numbness, tingling, and seizure, Psych: Negative for depression, anxiety, suicide ideation, homicidal ideation, and hallucinations, Allergy/Immunology: Negative for hives, rash, and allergies, Endocrine: Negative for neck swelling, polydipsia, polyuria, polyphagia, and marked weight changes. Exam: 22:35 Constitutional: This is a well developed, well nourished patient who is awake, alert, roselia and in no acute distress. Head/Face: Normocephalic, atraumatic. Eyes: Pupils equal round and reactive to light, extra-ocular motions intact. Lids and lashes normal. Conjunctiva and sclera are non-icteric and not injected. Cornea within normal limits. Periorbital areas with no swelling, redness, or edema. ENT: Nares patent. No nasal discharge, no septal abnormalities noted. Tympanic membranes are normal and external auditory canals are clear. Oropharynx with no redness, swelling, or masses, exudates, or evidence of obstruction, uvula midline. Mucous membranes moist. Neck: Trachea midline, no thyromegaly or masses palpated, and no cervical lymphadenopathy. Supple, full range of motion without nuchal rigidity, or vertebral point tenderness. No Meningismus. Chest/axilla: Normal chest wall appearance and motion. Nontender with no deformity. No lesions are appreciated. Cardiovascular: Regular rate and rhythm with a normal S1 and S2. No gallops, murmurs, or rubs. Normal PMI, no JVD. No pulse deficits. Respiratory: Lungs have equal breath sounds bilaterally, clear to auscultation and percussion. No rales, rhonchi or wheezes noted. No increased work of breathing, no retractions or nasal flaring. Abdomen/GI: Soft, non-tender, with normal bowel sounds. No distension or tympany. No guarding or rebound. No evidence of tenderness throughout. Back: No spinal tenderness. No costovertebral tenderness. Full range of motion. Skin: Warm, dry with normal turgor. Normal color with no rashes, no lesions, and no evidence of cellulitis. MS/ Extremity: Pulses equal, no cyanosis. Neurovascular intact. Full, normal range of motion. Neuro: Awake and alert, GCS 15, oriented to person, place, time, and situation. Cranial nerves II-XII grossly intact. Motor strength 5/5 in all extremities. Sensory grossly intact. Cerebellar exam normal. Normal gait. Psych: Awake, alert, with orientation to person, place and time. Behavior, mood, and affect are within normal limits. 23:25 ECG was reviewed by the Attending Physician. [facility] Vital Signs: 22:09 BP 210 / ???; Pulse 75; Resp 16; Temp 98.7; Pulse Ox 99% ; Weight 95.25 kg; Height 5 rv ft. 7 in. (170.18 cm); 23:26 BP 172 / 103; Pulse 71; Resp 18; Pulse Ox 98% on R/A; ea 22:09 Body Mass Index 32.89 (95.25 kg, 170.18 cm) rv NIH Stroke Scale Scores: 22:06 NIHSS Score: 0 rv [place] Coma Score: 22:40 Eye Response: spontaneous(4). Verbal Response: oriented(5). Motor Response: obeys [facility] commands(6). Total: 15. MDM: 21:32 Patient medically screened. roselia 22:40 Differential diagnosis: hyponatremia, migraine, temporal arteritis, tension headache, roselia trigeminal neuralgia. Data reviewed: vital signs, nurses notes, lab test result(s), EKG, radiologic studies, CT scan, plain films. Data interpreted: personnel monitor: rate is 69 beats/min, rhythm is regular, Pulse oximetry: on room air is 99 %. Test interpretation: by ED physician or midlevel provider: ECG, plain radiologic studies. 08/16 21:35 Order name: Basic Metabolic Panel; Complete Time: 23:22 [facility] 08/16 21:35 Order name: CBC with Diff; Complete Time: 23: [facility] 08/16 21:35 Order name: LFT's; Complete Time: 23:22 [facility] 08/16 21:35 Order name: Magnesium; Complete Time: 23:22 [facility] 08/16 21:35 Order name: NT PRO-BNP; Complete Time: 23:22 [facility] 08/16 21:35 Order name: PT-INR; Complete Time: 23:22 [facility] 08/16 21:35 Order name: Troponin (emerg Dept Use Only); Complete Time: 23:22 [facility] 08/16 21:35 Order name: UDS [facility] 08/16 21:35 Order name: Sed Rate; Complete Time: 23:22 [facility] 08/16 21:35 Order name: CRP; Complete Time: 23:22 [facility] 08/16 22:10 Order name: Glucose, Ancillary Testing; Complete Time: 23: EDCT 08/16 22:26 Order name: CBC Smear Scan; Complete Time: 23:22 [facility] 08/16 23:03 Order name: Urine Dipstick--Ancillary (enter results) ds4 08/16 23:03 Order name: Urine --Ancillary (enter results) [facility] 08/16 21:31 Order name: CT Stroke Brain w/o Contrast 08/16 21:35 Order name: XRAY Chest (1 view) [facility] 08/16 21:35 Order name: EKG; Complete Time: 21:36 [facility] 08/16 21:35 Order name: Cardiac monitoring; Complete Time: 22:15 [facility] 08/16 21:35 Order name: EKG - Nurse/Tech; Complete Time: 22:15 [facility] 08/16 21:35 Order name: IV Saline Lock; Complete Time: 22:15 [facility] 08/16 21:35 Order name: Labs collected and sent; Complete Time: 22:15 [facility] 08/16 21:35 Order name: O2 Per Protocol; Complete Time: 22:16 [facility] 08/16 21:35 Order name: O2 Sat Monitoring; Complete Time: 22:16 [facility] 08/16 21:35 Order name: Urine Test (obtain specimen); Complete Time: 23:01 [facility] 08/16 21:35 Order name: Urine Dipstick-Ancillary (obtain specimen); Complete Time: 23:00 [facility] EC:25 Rate is 68 beats/min. Rhythm is regular. QRS [place] is Normal. [place] interval is normal. QRS roselia interval is normal. QT interval is normal. No Q waves. T waves are Normal. No ST changes noted. Clinical impression: Normal ECG and No evidence of ischemia. Interpreted by me. Reviewed by me. Administered Medications: 22:08 Drug: foLIC Acid 1 mg Route: IVPB; Site: left antecubital; ea 23:29 Follow up: Response: No adverse reaction; IV Status: Completed infusion ea 22:08 Drug: NS 0.9% 1000 ml Route: IV; Rate: 1 bolus; Site: left forearm; ea 23:29 Follow up: Response: No adverse reaction; IV Status: Completed infusion; IV Intake: ea 1000ml 22:16 Drug: Aspirin Chewable Tablet 324 mg Route: PO; ea 22:51 Follow up: Response: No adverse reaction ea 22:49 Drug: Norvasc 10 mg Route: PO; ea 23:25 Follow up: Response: No adverse reaction ea 23:29 Drug: Hydrochlorothiazide 25 mg Route: PO; ea 23:30 Follow up: Response: Medication administered at discharge. ea 23:29 Drug: Tylenol 1000 mg Route: PO; ea 23:30 Follow up: Response: Medication administered at discharge. joss Disposition: 08/16/20 23:24 Discharged to Home. Impression: Essential (primary) hypertension, Headache. - Condition is Stable. - Discharge Instructions: General Headache Without Cause, Hypertension, Hypertension, [id number], Aspirin and Your Heart, General Headache Without Cause, [id number], Managing Your Hypertension. - Prescriptions for Norvasc 5 mg Oral Tablet - take 1 tablet by ORAL route once daily; 20 tablet. Hydrochlorothiazide 12.5 mg Oral Tablet - take 1 tablet by ORAL route once daily; 30 tablet. Folic Acid 1 mg Oral Tablet - take 1 tablet by ORAL route once daily; 30 tablet. - Medication Reconciliation Form, Thank You Letter, Antibiotic Education, Prescription Opioid Use, Work release form form. - Follow up: Private Physician; When: 2 - 3 days; Reason: Recheck today's complaints, Continuance of care, Re-evaluation by your physician. Follow up: Kj Mcclure MD; When: 2 - 3 days; Reason: Recheck today's complaints, Re-evaluation by your physician. Follow up: Satya Whaley MD; When: 2 - 3 days; Reason: Recheck today's complaints, Re-evaluation by your physician. - Problem is new. - Symptoms have improved. NIH Stroke Scale - NIH Stroke Score Date: 08/16/2020 Time: 22:06 Total Score = 0 1a. Level of Consciousness (LOC) - 0(Alert) 1b. Level of Consciousness (LOC) (Year \T\ Age) - 0(Both) 1c. LOC Commands (Open \T\ Closes Eyes/Early Head Start Director) - 0(Both) 2. Best Gaze (Lateral Gaze Paresis) - 0(Normal) 3. Visual Field Loss - 0(No visual loss) 4. Facial Palsy - 0(Normal) 5a. Left Arm: Motor (10-second hold) - 0(No drift) 5b. Right Arm: Motor (10-second hold) - 0(No drift) 6a. Left Leg: Motor (5-second hold - always test supine) - 0(No drift) 6b. Right Leg: Motor (5-second hold - always test supine) - 0(No drift) 7. Limb Ataxia (finger/nose \T\ heel/flood - test with eyes open) - 0(Absent) 8. Sensory Loss (pinprick arms/legs/face) - 0(Normal) 9. Best Language: Aphasia (description/naming/reading) - 0(No aphasia) 10. Dysarthria (speech clarity - read or repeat words) - 0(Normal) 11. Extinction and Inattention (visual/tactile/auditory/spatial/personal) - 0(No abnormality) Initials: rv Signatures: Dispatcher [employer] EDMS Rahul Garcia RN RN Murphy Martínez MD MD cha Antunez, Elena, RN RN ea Corrections: (The following items were deleted from the chart) 23:34 23:24 08/16/2020 23:24 Discharged to Home. Impression: Essential (primary) ea hypertension; Headache. Condition is Stable. Forms are Medication Reconciliation Form, Thank You Letter, Antibiotic Education, Prescription Opioid Use. Follow up: Private Physician; When: 2 - 3 days; Reason: Recheck today's complaints, Continuance of care, Re-evaluation by your physician. Follow up: Kj Mcclure; When: 2 - 3 days; Reason: Recheck today's complaints, Re-evaluation by your physician. Follow up: Satya Whaley; When: 2 - 3 days; Reason: Recheck today's complaints, Re-evaluation by your physician. Problem is new. Symptoms have improved. roselia
[2020-08-16 23:42] VITALS: TEMP 98.7
[2020-08-16 23:43] VITALS: BP 172/103; O2SAT 98
[2020-08-16] MEDS ORDERED: hydroCHLOROthiazide 25 MG TAB ONE (23:43)
[2020-08-16] MEDS ORDERED: ACETAMINOPHEN 500 MG TAB ONE (23:43)
[2020-08-17 01:35] LABS: Urine Blood NEGATIVE (NEG); Urine Glucose NEGATIVE (NEG); Urine Protein NEGATIVE (NEG); Urine Specific Gravity 1.025 (1.005-1.030); Urine pH 7.5 (5.0-7.0)
--- NOTE | 2020-08-17 09:00 | RAD REPORT ---
EXAM DESCRIPTION: RAD - Chest Single View - 08/16/2020 10:02 pm CLINICAL HISTORY: COUGH Chest pain. COMPARISON: No comparisons FINDINGS: Portable technique limits examination quality. The lungs are grossly clear. The heart is normal in size. No displaced fractures. IMPRESSION: No acute intrathoracic process suspected.
--- NOTE | 2020-08-17 11:06 | RAD REPORT ---
EXAM DESCRIPTION: CT HEAD WITHOUT CONTRAST CLINICAL HISTORY: WEAKNESS COMPARISON: None. TECHNIQUE: Axial unenhanced CT imaging of the brain. Reformatted coronal and sagittal images obtaine d. This examination was performed according to our departmental dose optimization program, which include s automated exposure control, adjustment of the mA and/or kV according to patient size and/or use of iterative reconstruction technique. FINDINGS: Scaphocephalic calvarial contour. Normal ventricle size and contour. Extra-axial fluid spa yodit appear normal. No intracranial bleed, edema, mass, or midline shift. Delgado-white matter differenti ation is preserved. The cerebellar tonsils are low-lying without ectopia. Fourth ventricle is midline. Prepontine cistern s are not effaced. Normal sellar contents. Intraorbital contents are unremarkable. Clear paranasal sinuses and mastoid air cells. Calvarium and skull base appear intact. Imaged facial bones are unremarkable. No scalp soft tissue abnormality. IMPRESSION: 1. No acute intracranial finding. Electronically signed by: Es Floyd DO 08/16/2020 9:50 PM [employer] HAND[employer]ER Due to temporary technical issues with the PACS/Fluency reporting system, reports are being signed by the in house radiologist without review as a courtesy to ensure prompt reporting. The interpreting r adiologist is fully responsible for the content of the report.
--- NOTE | 2020-08-17 11:22 | EKG ---
Test Date: 2020-08-16 Test Time: 21:39:42 Rib Cloth Knitter: GIBRAN MEASUREMENT RESULTS: Intervals: Rate: 68 MI: 152 QRSD: 88 QT: 402 QTc: 427 [place]: P: 44 MI: 152 QRS: 24 T: 6 INTERPRETIVE STATEMENTS: Normal sinus rhythm with sinus arrhythmia Normal ECG Compared to ECG 05/01/2020 07:16:09 No significant changes Electronically Signed On 08-17-20 11:20:47 [employer] ENGINEERING MANAGER by Satya Whaley
== END 2020-08-16 23:34 | disposition home or self-care (01) ==
LOC: ER 21:26
DX: I10 Essential (primary) hypertension (principal)
CPT/HCPCS: 36415; 70450; 71045; 80048; 80076; 80307; 81003; 81025; 82947; 83735; 83880; 84484; 85025; 85610; 85652; 86140; 93005; 96365; 99285; J7030